=== PATIENT | male | born 1955 | race Asian ===

== ENCOUNTER 2022-09-23 14:42 | Outpatient (CLI) | payer OTHER, MEDICARE | END 2022-09-23 23:59 | disposition short-term general hospital (02) | LOC: EMS 14:42 | DX: S19.9XXA Unspecified injury of neck, initial encounter (principal); S39.92XA Unspecified injury of lower back, initial encounter; V53.5XXA Driver of pick-up truck or van injured in collision with car, pick-up truck or van in traffic accident, initial encounter; Y93.89 Activity, other specified; Y92.413 State road as the place of occurrence of the external cause | CPT/HCPCS: A0425; A0429 ==